=== PATIENT | female | born 1975 | race Caucasian/White ===

== ENCOUNTER 2018-03-29 13:19 | Emergency (ER) | payer SELFPAY ==
[~2018-03-29] VITALS: Ht 157.5 cm; Wt 63.4 kg
[2018-03-29 13:36] VITALS: BP 149/92
[2018-03-29] MEDS ORDERED: KETOROLAC 30 MG/1 ML ONE (13:57)
[2018-03-29] MEDS ORDERED: KETOROLAC 30 MG/1 ML IM ONE (14:00)
== END 2018-03-29 14:03 | disposition home or self-care (01) ==
LOC: ED 13:46
DX: K08.89 Other specified disorders of teeth and supporting structures (principal); Z88.8 Allergy status to other drugs, medicaments and biological substances
CPT/HCPCS: 96372; 99283; J1885